=== PATIENT | male | born 1985 | race Two or more races ===

== ENCOUNTER 2024-05-13 17:03 | Emergency (ER) | payer OTHER ==
[~2024-05-13] VITALS: Ht 170.2 cm; Wt 74.8 kg
[2024-05-13 18:35] LABS: HEMATOCRIT 46.5 % (39.0-48.0); MEAN CELL VOLUME 90.4 fL (80.0-100.00); MEAN CORPUSCULAR HEMOGLOBIN 31.1 pg (27.00-32.0); MEAN CORPUSCULAR HGB CONC 34.4 g/dl (32.0-36.0); PLATELET COUNT 282 K/uL (150-450); RED BLOOD COUNT 5.15 M/uL (4.00-6.00); RED CELL DISTRIBUTION WIDTH 14.1 % (11.5-14.5)
== END 2024-05-13 19:39 | disposition home or self-care (01) ==
LOC: ER 17:05
DX: B34.9 Viral infection, unspecified (principal)